=== PATIENT | female | born 1950 | race African-American/Black ===

== ENCOUNTER 2017-12-24 03:01 | Emergency (ER) | payer SELFPAY | END 2017-12-24 03:11 | disposition left against medical advice (07) | LOC: EMS 03:02 | DX: R53.1 Weakness (principal); Z53.21 Procedure and treatment not carried out due to patient leaving prior to being seen by health care provider ==

== ENCOUNTER 2019-03-02 05:18 | Inpatient (IN) | payer MEDICARE ==
[2019-02-24 13:57] LABS: BASOPHILS % (AUTO) 0.6 % (0.0-2.0); EOSINOPHILS % (AUTO) 1.8 % (1.0-6.0); HEMATOCRIT 35.9 % (36-46); HEMOGLOBIN 11.7 g/dL (12.0-16.0); LYMPHOCYTES # (AUTO) 3.2 K/uL (1.0-4.8); MEAN CORPUSCULAR HEMOGLOBIN 28.6 pg (26.0-34.0); MEAN CORPUSCULAR HGB CONC 32.6 G/dL (31.0-37.0); MEAN CORPUSCULAR VOLUME 88 fL (80-100); MONOCYTES # (AUTO) 0.7 K/uL (0.1-1.0); MONOCYTES % (AUTO) 8.7 % (2.0-9.0); NEUTROPHILS # (AUTO) 4.2 K/uL (1.8-7.7); NEUTROPHILS % (AUTO) 49.9 % (40.0-70.0); PLATELET COUNT (AUTO) 275 K/uL (150-450); RED CELL DISTRIBUTION WIDTH 13.6 % (11.5-14.5)
[2019-02-24 14:07] LABS: PROTHROMBIN TIME 10.6 SEC (9.4-11.6)
[2019-02-24 14:08] LABS: ANION GAP 6 mmol/L (8-16); CALCIUM, TOTAL 9.5 mg/dL (8.8-10.5); CARBON DIOXIDE 32 mmol/L (22-29); CHLORIDE 103 mmol/L (98-107); GLOMERULAR FILTR. RATE CALC > 60 mL/min (>60); GLUCOSE,RANDOM 123 mg/dL (70-110); POTASSIUM 3.2 mmol/L (3.5-5.1); SODIUM SERUM 141 mmol/L (136-145); UREA NITROGEN, BLOOD 18 mg/dL (7-18)
[2019-02-24 14:14] LABS: ALANINE AMINOTRANSFERASE 33 U/L (12-78); ALBUMIN 3.9 g/dL (3.4-5.0); ALKALINE PHOSPHATASE 65 U/L (46-116); ASPARTATE AMINOTRANSFERASE 13 U/L (15-37); BILIRUBIN,TOTAL 0.3 mg/dL (0.1-1.0); TOTAL PROTEIN, SERUM 8.1 g/dL (6.4-8.2)
[2019-02-24 14:31] LABS: HEMOGLOBIN A1C 7.2 % (4.5-6.2)
[~2019-03-02] VITALS: Ht 160 cm; Wt 65.9 kg
[~2019-03-02 05:18] MED LIST: ALBU8HFA PO; LOSA1TAB42 PO
[2019-03-02] MEDS ORDERED: CeFAZolin 2 GM/DEXTROSE 50 ML IV ONE (05:30)
[2019-03-02] MEDS ORDERED: RINGERS SOLUTION,LACTATED 1,000 ML IV ONE ×3 (05:30→07:41)
[2019-03-02] MEDS ORDERED: BUPIVACAINE LIPOSOME/PF 1.3%-13.3MG/ML SUSPENSION 20 ML VIAL INJ ONE ×2 (07:00→08:44)
[2019-03-02] MEDS ORDERED: ACETAMINOPHEN 1000 MG/ISO-OSM 100 ML IV ONE (07:41)
[2019-03-02] MEDS ORDERED: ONDANSETRON HCL 4 MG/2 ML VIAL IVP PRN (08:00)
[2019-03-02] MEDS ORDERED: ZOLPIDEM TARTRATE 10 MG TABLET PO PRN (08:00)
[2019-03-02] MEDS ORDERED: DiphenhydrAMINE HCL 50 MG/ML VIAL IVP PRN (08:00)
[2019-03-02] MEDS ORDERED: BACITRACIN 28.4 GM OINTMENT TP PRN (08:00)
[2019-03-02] MEDS ORDERED: MAG HYDROX/AL HYDROX/SIMETH 30 ML SUSP UDCUP PO PRN (08:00)
[2019-03-02] MEDS ORDERED: FentaNYL CITRATE-PF 100 MCG/2 ML VIAL IVP PRN (08:30)
[2019-03-02] MEDS ORDERED: MEPERIDINE-PF 25 MG/ML VIAL IVP PRN (08:30)
[2019-03-02] MEDS ORDERED: HYDROmorphone 2 MG/ML SYRINGE IVP PRN ×2 (08:30)
[2019-03-02] MEDS ORDERED: OxyCODONE HCL/ACETAMINOPHEN 5-325 MG TABLET PO PRN ×2 (08:30)
[2019-03-02] MEDS ORDERED: ALBUTEROL SULFATE 2.5 MG/0.5 ML NEB SOLUTION NEB ONE (09:05)
[2019-03-02 10:37] VITALS: BP 125/45
[2019-03-02] MEDS: CYCLOBENZAPRINE HCL 10 MG TABLET PO SCH ×2 (11:48→16:00)
[2019-03-02] MEDS ORDERED: MIDAZOLAM HCL 2 MG/2 ML VIAL IVP ONE (12:00)
[2019-03-02] MEDS ORDERED: ONDANSETRON HCL 4 MG/2 ML VIAL IVP ONE (12:00)
[2019-03-02] MEDS ORDERED: LIDOCAINE/PF 2% 5 ML VIAL INJ ONE (12:00)
[2019-03-02] MEDS ORDERED: GLYCOPYRROLATE 0.2 MG/ML VIAL IM ONE (12:00)
[2019-03-02] MEDS ORDERED: NEOSTIGMINE METHYLSULFATE 1 MG/ML 10 ML VIAL IVP ONE (12:00)
[2019-03-02] MEDS ORDERED: FentaNYL CITRATE-PF 100 MCG/2 ML VIAL IVP ONE (12:00)
[2019-03-02] MEDS ORDERED: PROPOFOL 1% 20 ML VIAL IVP ONE (12:00)
[2019-03-02] MEDS ORDERED: KETOROLAC TROMETHAMINE 60 MG/2 ML VIAL IM ONE (12:00)
[2019-03-02] MEDS ORDERED: DEXAMETHASONE SOD PHOS 4 MG/ML VIAL IVP ONE (12:00)
[2019-03-02] MEDS ORDERED: ROCURONIUM BROMIDE 10 MG/ML 5 ML VIAL IVP ONE (12:00)
[2019-03-02] MEDS ORDERED: KETOROLAC TROMETHAMINE 15 MG/ML VIAL IVP PRN ×2 (12:30→21:30)
[2019-03-02] MEDS ORDERED: SODIUM CHLORIDE 0.9% 500 ML IV ONE (14:16)
[2019-03-02] MEDS: ACETAMINOPHEN 1000 MG/ISO-OSM 100 ML IV SCH ×2 (14:37→23:35)
[2019-03-02] MEDS: BENZOCAINE/MENTHOL LOZENGE PO PRN ×2 (14:39→23:39)
[2019-03-02 15:45] VITALS: BP 144/70
[2019-03-02] MEDS ORDERED: OXYGEN THERAPY IH SCH (20:00)
[2019-03-02 20:35] VITALS: BP 143/60
[2019-03-02] MEDS: DOCUSATE SODIUM 100 MG CAPSULE PO SCH (21:00)
[2019-03-02 23:46] VITALS: BP 137/58
[2019-03-03 04:00] VITALS: BP 122/53
[2019-03-03 07:25] VITALS: BP 139/56
[2019-03-03] MEDS: DOCUSATE SODIUM 100 MG CAPSULE PO SCH (08:47)
[2019-03-03] MEDS: ACETAMINOPHEN 1000 MG/ISO-OSM 100 ML IV SCH (08:47)
[2019-03-03] MEDS: CYCLOBENZAPRINE HCL 10 MG TABLET PO SCH ×2 (08:47)
[2019-03-03 11:30] VITALS: BP 125/57
[2019-03-03 15:40] VITALS: BP 132/59
== END 2019-03-03 16:30 | disposition home or self-care (01) | DRG 460 ==
LOC: 6N 05:18 → 4E 11:16
PROVIDERS: ADMIT Orthopaedic Surgery Orthopaedic Surgery of the Spine; ATTEND Orthopaedic Surgery Orthopaedic Surgery of the Spine
PROC: 0SB20ZZ Excision of Lumbar Vertebral Disc, Open Approach (ICD-10-PCS; 2019-03-02)
PROC: 0SG00A0 Fusion of Lumbar Vertebral Joint with Interbody Fusion Device, Anterior Approach, Anterior Column, Open Approach (ICD-10-PCS; principal; 2019-03-02 07:30)
DX: M48.061 Spinal stenosis, lumbar region without neurogenic claudication (principal); M43.16 Spondylolisthesis, lumbar region; I10 Essential (primary) hypertension; J44.9 Chronic obstructive pulmonary disease, unspecified
CPT/HCPCS: 83036; 87081; 97116; 97161; 97530; C9290; G0378; J0131; J0690; J1100; J1885; J2250; J2405; J2704; J3010; J3490; J7040; J7120